=== PATIENT | female | born 1975 | race Caucasian/White ===

== ENCOUNTER 2018-10-31 08:55 | Emergency (ER) | payer MEDICAID ==
[~2018-10-31] VITALS: Ht 157.5 cm; Wt 60.9 kg
[2018-10-31 10:59] LABS: microscopic required? NO
[2018-10-31 11:09] LABS: BASOPHIL % 0.4 % (0-2); PLATELET COUNT 268 x10^3mcL (130-400); RED CELL DISTRIBUTION WIDTH 12.5 % (11.5-14.5)
[2018-10-31 11:12] LABS: CARBON DIOXIDE 28.5 mmol/L (21-32); CHLORIDE SERUM 104 mmol/L (98-107); CREATININE SERUM 0.6 mg/dL (0.6-1.0); GFR1 > 60 mL/min; GLUCOSE SERUM 85 mg/dL (74-106); POTASSIUM SERUM 3.5 mmol/L (3.5-5.1); SODIUM SERUM 139 mmol/L (136-145)
[2018-10-31 11:16] LABS: ALBUMIN 4.1 g/dL (3.4-5.0); ALKALINE PHOSPHATASE 87 U/L (46-116); ALT/SGPT 27 U/L (14-59); AST/SGOT 13 U/L (15-37); BILIRUBIN TOTAL 2.04 mg/dL (0.20-1.00); CHOLESTEROL 140 mg/dL (<200); LIPASE 87 IU/L (73-393); TRIGLYCERIDES 63 mg/dL (<150)
[2018-10-31 11:17] LABS: CHOLESTEROL/HDL RATIO 2.3; HDL CHOLESTEROL 61 mg/dL (40-60)
[2018-10-31 11:34] LABS: T3 TOTAL 1.12 ng/mL
[2018-10-31 11:44] LABS: UA SPECIFIC GRAVITY 1.015 (1.005-1.035)
[2018-10-31 11:45] LABS: urine erythrocyte NEGATIVE (NEGATIVE)
[2018-10-31 11:53] LABS: FREE T4 0.97 ng/dL (0.76-1.46); FREE THYROXINE INDEX 2.9 ug/dL (1.4-4.5)
[2018-10-31 12:45] VITALS: BP 128/75
== END 2018-10-31 12:45 | disposition home or self-care (01) ==
LOC: ED 08:55
PROVIDERS: Specialist
DX: Z13.89 Encounter for screening for other disorder (principal); E80.6 Other disorders of bilirubin metabolism; F41.9 Anxiety disorder, unspecified
CPT/HCPCS: 36415; 83880; 84439; Q0092